=== PATIENT | female | born 1955 | race Caucasian/White ===

== ENCOUNTER → 2017-04-08 | Outpatient (CLI) | payer MEDICARE ==
--- NOTE | 2017-04-08 11:32 | RAD ---
Indication history of tobacco use. Shortness of breath. PA and lateral views of the chest were obtained. No prior imaging of the chest is available. There is some mild diffuse interstitial prominence which, given the history, may reflect fibrotic changes. There is a 12 mm soft tissue nodule in the left upper lobe. While this may reflect a noncalcified granuloma other etiologies including neoplastic disease are not excluded. Comparison with old films establishing stability advised. If old films are not available then a CT examination of the chest should be considered. An acute finding in the chest is not seen. Significant pleural fluid is not present. There is no pneumothorax. There is slight hyperexpansion which, again there is compatible with a, chronic process. IMPRESSION: Probable fibrotic changes. 12 mm pulmonary nodule in the left upper lobe. See above discussion. No acute finding seen. A preliminary copy of this report was faxed to Dr. Regulo Jacobo's office and received by Qian Colon RN by Rhina Ford on 04-08-17 at 11:03 am.
== END | disposition home or self-care (01) ==
LOC: DXRADRC 10:26
PROVIDERS: ATTEND General Practice
DX: R06.02 Shortness of breath (principal); R91.1 Solitary pulmonary nodule; Z72.0 Tobacco use
CPT/HCPCS: 71020

== ENCOUNTER → 2017-04-23 | Outpatient (CLI) | payer MEDICARE ==
--- NOTE | 2017-04-23 12:57 | RAD ---
Examination: CT chest without contrast History: History of tobacco use, weight loss Comparison: None available Technique: Axial CT images of the chest were performed without contrast. Coronal and sagittal reformats are performed PQRS Compliance Statement: One or more of the following individualized dose reduction techniques were utilized for this examination: 1. Automated exposure control 2. Adjustment of the mA and/or kV according to patient size 3. Use of iterative reconstruction technique Findings: The visualized thyroid gland grossly appears unremarkable. The central airways are patent. The ascending aorta measures 3.2 cm in transverse dimension and 3.2 cm in AP dimension. Coronary artery calcifications identified. The heart size grossly appears unremarkable. No evidence of pericardial effusion identified There is a 1.4 cm solid appearing nodule identified in the left upper lobe of the lung. In the left lingula, there is a solid 4 mm nodule identified. No evidence of pleural effusion or pneumothorax. The visualized noncontrasted liver, spleen grossly appears unremarkable. The visualized adrenal glands grossly appears unremarkable. There is a cystic structure identified in the left kidney measuring 1.7 x 1.5 cm could be a cyst or cystic lesion. Mild degenerative changes of thoracic spine. Impression: 1. A 1.4 cm nodule identified in the left upper lobe of the lung. Differential includes neoplasm, noncalcified granuloma. Recommend PET CT scan for further evaluation. 2. 4 mm nodule identified in the left lingula follow-up CT in 6-12 months is recommended per Fleischner Society guidelines. 3. Coronary artery calcifications.
--- NOTE | 2017-04-23 14:02 | RAD ---
Examination: DEXA scan History: History of postmenopausal, smoking Comparison: None available Findings: The bone mineral density in the lumbar spine is 1.412 g/sq cm with a T score of 1.9 and a Z score of 4.1. The bone mineral density in the right hip is 0.996 g/sq cm with a T score of -0.1 and the Z score 1.4. Impression: According to world congress diagnostic guidelines the bone mineral density of the lumbar spine and in the right hip is normal.
== END | disposition home or self-care (01) ==
LOC: DXRAD 11:15
PROVIDERS: ATTEND General Practice
DX: I25.10 Atherosclerotic heart disease of native coronary artery without angina pectoris (principal); N95.1 Menopausal and female climacteric states; E55.9 Vitamin D deficiency, unspecified; R63.4 Abnormal weight loss; R91.1 Solitary pulmonary nodule; R06.02 Shortness of breath; Z72.0 Tobacco use
CPT/HCPCS: 71250; 77080

== ENCOUNTER → 2017-10-14 | Outpatient (CLI) | payer MEDICARE ==
--- NOTE | 2017-10-14 10:56 | RAD ---
Indication: Follow-up nodules. Lifetime heavy smoker. Technique: Axial images and coronal and sagittal reformatted images are provided. Comparison is from April 23, 2017. There are no older comparisons available. One or more of the following individualized dose reduction techniques were utilized for this examination: 1. Automated exposure control 2. Adjustment of the mA and/or kV according to patient size 3. Use of iterative reconstruction technique Findings: Left upper lobe nodule has decreased in size. It measures 11 x 7 mm compared to 13 x 11 mm on my measurements on prior. Second nodule on the left on image 47 is stable at 3 mm. No new nodule is identified. There is minimal dependent atelectasis. There is minimal apical scarring. There is minimal emphysema with an upper lobe predominance. Central airways are patent. There is atheromatous disease in the thoracic aorta without aneurysm. Coronary artery calcifications are noted. There is cholelithiasis. 2 cm cystic lesion is noted in the left kidney, stable. There are minimal degenerative changes in the spine. Impression: 1. Interval decrease in size of the left upper lobe nodule. Please correlate with any interval treatment. 2. Additional nodule on the left is stable. 3. Per Fleischner Society, follow-up would be at 18-24 months from the initial April exam. If this patient has a known history of breast cancer or other malignancy, the nodules no longer would be considered incidental and a shorter term follow-up should be considered.
== END | disposition home or self-care (01) ==
LOC: CT 09:26
PROVIDERS: ATTEND General Practice
DX: J43.9 Emphysema, unspecified (principal); J98.11 Atelectasis; J98.4 Other disorders of lung; R91.1 Solitary pulmonary nodule; I25.10 Atherosclerotic heart disease of native coronary artery without angina pectoris; I70.0 Atherosclerosis of aorta; K80.20 Calculus of gallbladder without cholecystitis without obstruction; N28.89 Other specified disorders of kidney and ureter; M54.5 Low back pain; M47.894 Other spondylosis, thoracic region
CPT/HCPCS: 71250

== ENCOUNTER → 2018-02-24 | Outpatient (CLI) | payer MEDICARE ==
[2018-02-24 11:10] LABS: BACTERIA,URINE MOD /HPF (0-FEW); BILIRUBIN,URINE NEG (NEG); CLARITY,URINE HAZY; COLOR,URINE YELLOW; GLUCOSE,URINE NEG (NEG); NITRITE,URINE NEG (NEG); SQUAMOUS EPITHELIAL CELL,UR OCC /LPF; UROBILINOGEN,URINE 0.2 mg/dL (0.2 mg/dL)
== END | disposition home or self-care (01) ==
LOC: LAB 10:23
PROVIDERS: ATTEND General Practice
DX: R30.0 Dysuria (principal)
CPT/HCPCS: 81001; 87086

== ENCOUNTER 2019-02-07 09:46 | Emergency (ER) | payer MEDICARE ==
[2019-02-07 10:11] LABS: BASO # 0.1 x10^3/uL (0.0-0.2); BASO % 1 % (0-3); EOS % 0 % (0-3); HEMATOCRIT 39.5 % (36.0-47.0); HEMOGLOBIN 13.6 g/dL (12.0-15.5); LYMPH # 0.7 x10^3/uL (1.0-4.8); LYMPH % 5 % (24-48); MEAN CORPUSCULAR HEMOGLOBIN 32 pg (25-35); MEAN CORPUSCULAR HGB CONC 35 g/dL (31-37); MEAN CORPUSCULAR VOLUME 94 fL (79-100); MONO # 0.9 x10^3/uL (0.0-1.1); MONO % 7 % (0-9); NEUT # 11.5 x10^3uL (1.8-7.7); NEUT % 88 % (31-73); PLATELET COUNT 186 x10^3/uL (140-400); RED BLOOD COUNT 4.21 x10^6/uL (3.50-5.40); RED CELL DISTRIBUTION WIDTH 12.8 % (11.5-14.5); WHITE BLOOD COUNT 13.1 x10^3/uL (4.0-11.0)
--- NOTE | 2019-02-07 10:12 | PHYS DOC ---
Adult General Chief Complaint Chief Complaint: ABDOMINAL PAIN HPI HPI 63-year-old female presents with left lower quadrant abdominal pain. She states the pain started gradually 2 days ago and has been getting worse. This morning she had episodes of nausea and vomiting. She denies diarrhea. She describes the pain as a deep cramping that is moderate to severe. She took Excedrin at home without relief. She denies fever or chills. She has not had abdominal pain like this before. No history of diverticulitis. Review of Systems Review of Systems Constitutional: Denies fever or chills [] Eyes: Denies change in visual acuity, redness, or eye pain [] HENT: Denies nasal congestion or sore throat [] Respiratory: Denies cough or shortness of breath [] Cardiovascular: No additional information not addressed in HPI [] GI: Abdominal pain, nausea, vomiting. Denies bloody stools or diarrhea [] : Denies dysuria or hematuria [] Musculoskeletal: Denies back pain or joint pain [] Integument: Denies rash or skin lesions [] Neurologic: Denies headache, focal weakness or sensory changes [] Endocrine: Denies polyuria or polydipsia [] All other systems were reviewed and found to be within normal limits, except as documented in this note. Current Medications Current Medications Current Medications Medications (Trade) Dose Ordered [facility] Start Time Stop Time Status Last Admin Dose Admin Morphine Sulfate (Morphine 2mg Syringe) 2 mg 1X ONCE 02/07/19 10:15 02/07/19 10:16 UNV Ondansetron HCl (Zofran) 4 mg 1X ONCE 02/07/19 10:15 02/07/19 10:16 UNV Allergies Allergies Allergies Coded Allergies Type Severity Reaction Last Updated Verified codeine Allergy Unknown 02/07/19 Yes Physical Exam Physical Exam Constitutional: Well developed, well nourished, no acute distress, non-toxic appearance. [] HENT: Normocephalic, atraumatic, bilateral external ears normal, oropharynx moist, no oral exudates, nose normal. [] Eyes: PERRLA, EOMI, conjunctiva normal, no discharge. [] Neck: Normal range of motion, no tenderness, supple, no stridor. [] Cardiovascular:Heart rate regular rhythm, no murmur [] Lungs & Thorax: Bilateral breath sounds clear to auscultation [] Abdomen: Left lower quadrant tenderness, soft, no guarding or rebound[] Skin: Warm, dry, no erythema, no rash. [] Back: No tenderness, no CVA tenderness. [] Extremities: No tenderness, no cyanosis, no clubbing, ROM intact, no edema. [] Neurologic: Alert and oriented X 3, normal motor function, normal sensory function, no focal deficits noted. [] Psychologic: Affect normal, judgement normal, mood normal. [] EKG EKG [] Radiology/Procedures Radiology/Procedures [] Impressions: CT Abdomen; CT Pelvis without contrast INDICATION: LLQ and mid section abdominal pain with vomiting x 2 days COMPARISON: Chest CT dated 10/14/2017, PET/CT dated 05/16/2017. TECHNIQUE: Multiple contiguous axial images were obtained throughout the abdomen and pelvis without the use of IV contrast. Axial images were reformatted into coronal and sagittal planes. IV or oral contrast was not utilized due to allergy to iodine FINDINGS: Abdomen findings: Evaluation of solid abdominal viscera is limited without the use of IV contrast. Unchanged subcentimeter hypoattenuating lesion in the right lobe of the liver (image 34, series 2) which is too small to characterize but statistically likely represents a simple hepatic cyst. No significant change in biliary ductal dilation measuring up to 1.6 cm which may be secondary to reservoir effect given the cholecystectomy. 2 left renal cysts. The kidneys are otherwise unremarkable. There is no significant mesenteric or retroperitoneal adenopathy identified, though evaluation is limited without intravenous contrast. There is no evidence of free intraperitoneal fluid or pneumoperitoneum. Portions of the large bowel are underdistended which limits evaluation for wall thickening. Mild colonic stool. Visualized portions of the bowel are otherwise grossly unremarkable. The appendix is not identified with certainty but there are no inflammatory changes in its expected position. Moderate to severe atherosclerosis of the abdominal aorta and its branches. Small fat-containing umbilical hernia. Pelvis findings: The urinary bladder is underdistended limiting evaluation. There is no significant pelvic ascites. No significant iliac or inguinal adenopathy is identified. No acute osseous abnormality. Heterogeneity within the osseous structures with mixed areas of lucency and sclerosis, although this is not significantly changed from prior PET/CT. For instance, in the right sacral ala there is an approximately 1.4 x 1.0 cm rounded lucency, unchanged from PET/CT. There are for nonrib-bearing lumbar-type vertebral bodies. The most superior of the lumbar-type vertebral bodies will be considered L1. Advanced L2-L3 degenerative changes. IMPRESSION: 1. No acute intra-abdominal or intrapelvic process identified. 2. No significant change in biliary ductal dilation measuring up to 1.6 cm which may be secondary to reservoir effect given the cholecystectomy. Correlate with patient's lab values. 3. Heterogeneity within the osseous structures with mixed areas of lucency and sclerosis, although this is not significantly changed from prior PET/CT. Findings are nonspecific but can be seen with such etiologies as Paget disease, multiple myeloma, and metastatic disease. Electronically signed by: Rdorigo Gillespie MD (02/07/2019 11:35 AM) [facility] DICTATED AND SIGNED BY: RODRIGO GILLESPIE MD DATE: 02/07/19 1135 CC: ARABELLA ROBBINS DO; MAKSIM ASH DO ~ Course & Med Decision Making Course & Med Decision Making Pertinent Labs and Imaging studies reviewed. (See chart for details) She was given 1 L normal saline, 8 mg of Zofran IV, 10 mg of Compazine IV to control her vomiting. She has not vomited since. She has been able to keep down some fluids. Gave her 4 mg of morphine for her pain. She still has some abdominal discomfort. Her CT scan is negative for acute findings. Her urinalysis is significant for yeast infection. I will give her Diflucan in the ED. The patient feels like she can go home. I will discharge her with a prescription for Zofran 8 mg ODT. Patient will take her already prescribed tramadol for pain as needed. She is stable for discharge at this time. [] Dragon Disclaimer Dragon Disclaimer This electronic medical record was generated, in whole or in part, using a voice recognition dictation system. Departure Departure: Impression: Primary Impression: Abdominal pain Additional Impression: Vomiting Disposition: HOME, SELF-CARE Condition: STABLE Referrals: ARABELLA ROBBINS DO (PCP) Patient Instructions: Abdominal Pain, [id number], Nausea and Vomiting, Easy- to-Read Problem Qualifiers Primary Impression: Abdominal pain Abdominal location: lower abdomen, unspecified Qualified Codes: R10.30 - Lower abdominal pain, unspecified Additional Impression: Vomiting Vomiting type: unspecified Vomiting Intractability: non-intractable Nausea presence: with nausea Qualified Codes: R11.2 - Nausea with vomiting, unspecified MAKSIM ASH DO Feb 07, 2019 10:12
[2019-02-07 10:26] LABS: ALBUMIN 3.2 g/dL (3.4-5.0); ALBUMIN/GLOBULIN RATIO 0.7 (1.0-1.7); CALCIUM 9.3 mg/dL (8.5-10.1); CREATININE 1.2 mg/dL (0.6-1.0); GFR 45.1; POTASSIUM 3.5 mmol/L (3.5-5.1); TOTAL BILIRUBIN 0.3 mg/dL (0.2-1.0); TOTAL PROTEIN 7.6 g/dL (6.4-8.2)
[2019-02-07] MEDS ORDERED: IOHEXOL 300 MG/ML 75 ML VIAL. IV ONE (10:30)
[2019-02-07] MEDS ORDERED: MORPHINE SULFATE 4 MG/ML DISP.SYRIN. IV ONE (10:40)
[2019-02-07] MEDS ORDERED: ONDANSETRON PF 4 MG/2 ML VIAL. IV ONE ×2 (10:40→11:25)
[2019-02-07] MEDS ORDERED: PROCHLORPERAZINE 10 MG/2 ML VIAL. IV ONE (11:25)
[2019-02-07 11:38] LABS: CLARITY,URINE CLOUDY; COLOR,URINE YELLOW
--- NOTE | 2019-02-07 11:38 | RAD ---
CT Abdomen; CT Pelvis without contrast INDICATION: LLQ and mid section abdominal pain with vomiting x 2 days COMPARISON: Chest CT dated 10/14/2017, PET/CT dated 05/16/2017. TECHNIQUE: Multiple contiguous axial images were obtained throughout the abdomen and pelvis without the use of IV contrast. Axial images were reformatted into coronal and sagittal planes. IV or oral contrast was not utilized due to allergy to iodine FINDINGS: Abdomen findings: Evaluation of solid abdominal viscera is limited without the use of IV contrast. Unchanged subcentimeter hypoattenuating lesion in the right lobe of the liver (image 34, series 2) which is too small to characterize but statistically likely represents a simple hepatic cyst. No significant change in biliary ductal dilation measuring up to 1.6 cm which may be secondary to reservoir effect given the cholecystectomy. 2 left renal cysts. The kidneys are otherwise unremarkable. There is no significant mesenteric or retroperitoneal adenopathy identified, though evaluation is limited without intravenous contrast. There is no evidence of free intraperitoneal fluid or pneumoperitoneum. Portions of the large bowel are underdistended which limits evaluation for wall thickening. Mild colonic stool. Visualized portions of the bowel are otherwise grossly unremarkable. The appendix is not identified with certainty but there are no inflammatory changes in its expected position. Moderate to severe atherosclerosis of the abdominal aorta and its branches. Small fat-containing umbilical hernia. Pelvis findings: The urinary bladder is underdistended limiting evaluation. There is no significant pelvic ascites. No significant iliac or inguinal adenopathy is identified. No acute osseous abnormality. Heterogeneity within the osseous structures with mixed areas of lucency and sclerosis, although this is not significantly changed from prior PET/CT. For instance, in the right sacral ala there is an approximately 1.4 x 1.0 cm rounded lucency, unchanged from PET/CT. There are for nonrib-bearing lumbar-type vertebral bodies. The most superior of the lumbar-type vertebral bodies will be considered L1. Advanced L2-L3 degenerative changes. IMPRESSION: 1. No acute intra-abdominal or intrapelvic process identified. 2. No significant change in biliary ductal dilation measuring up to 1.6 cm which may be secondary to reservoir effect given the cholecystectomy. Correlate with patient's lab values. 3. Heterogeneity within the osseous structures with mixed areas of lucency and sclerosis, although this is not significantly changed from prior PET/CT. Findings are nonspecific but can be seen with such etiologies as Paget disease, multiple myeloma, and metastatic disease. Electronically signed by: Rodrigo Donahue MD (02/07/2019 11:35 AM) [facility]
[2019-02-07 11:39] LABS: BILIRUBIN,URINE NEG (NEG); GLUCOSE,URINE NEG (NEG); NITRITE,URINE NEG (NEG); RBC,URINE >40 /HPF (0-2); UROBILINOGEN,URINE 0.2 mg/dL (0.2 mg/dL); WBC,URINE 20-40 /HPF (0-4)
[2019-02-07 11:41] LABS: BACTERIA,URINE MOD /HPF (0-FEW); SQUAMOUS EPITHELIAL CELL,UR MANY /LPF; YEAST,URINE PRESENT /HPF
[2019-02-07] MEDS ORDERED: HYDROcodone/APAP 5/325MG 1 TAB TABLET PO ONE (12:30)
[2019-02-07] MEDS ORDERED: FLUCONAZOLE 100 MG TABLET. PO ONE (12:30)
[2019-02-07 13:06] LABS: INFLUENZA A PATIENT NEGATIVE (NEGATIVE); INFLUENZA B PATIENT NEGATIVE (NEGATIVE)
--- NOTE | 2019-02-07 13:32 | RAD ---
PA and lateral views of the chest. Comparison: Chest radiograph dated 04/08/2017, CT chest dated 10/14/2017, PET/CT dated 05/16/2017. Indication: Fever Findings: Normal lung volume. No focal consolidation. There is some heterogeneous airspace opacities in the left mid to upper lung zone in the region of previously demonstrated left lung nodule. Normal pulmonary vasculature. No pleural effusion. No pneumothorax. The cardiomediastinal silhouette is normal in appearance. The great vessels are normal. No acute osseous abnormality. Impression: 1. No focal consolidation. 2. Some heterogeneous airspace opacities are seen in the left mid to upper lung zone in the region of the previously demonstrated left lung nodule. Discrete nodularity is not seen on today's exam. Electronically signed by: Rodrigo Donahue MD (02/07/2019 1:29 PM) [facility]
[2019-02-07] MEDS ORDERED: ACETAMINOPHEN 500 MG TABLET PO ONE (14:20)
[2019-02-07] MEDS ORDERED: IV NORMAL SALINE 50ML 50 ML ONE (14:28)
[2019-02-07] MEDS ORDERED: cefTRIAXone SODIUM 1 GM VIAL ONE (14:28)
[2019-02-07] MEDS ORDERED: ONDA4TAB12 PO (15:12)
[2019-02-07 15:18] VITALS: BP 126/68
== END 2019-02-07 15:22 | disposition left against medical advice (07) ==
LOC: ER 09:46
DX: R10.32 Left lower quadrant pain (principal); R11.2 Nausea with vomiting, unspecified; Z88.5 Allergy status to narcotic agent
CPT/HCPCS: 36415; 71046; 74176; 80053; 81001; 85025; 87040; 87086; 87205; 87804; 96365; 96375; 96376; 99284; J0696; J0780; J2270; J2405; 87077; 87186

== ENCOUNTER → 2020-09-16 | Outpatient (CLI) | payer MEDICARE ==
[~2020-09-16] MED LIST: CITA40TA12 PO; ONDA4TAB12 PO; TRAM50TA PO
== END ==
LOC: LAB 10:26 → MERGE 10:26
PROVIDERS: ATTEND Nurse Anesthetist, Certified Registered
DX: Z01.818 Encounter for other preprocedural examination (principal); K62.5 Hemorrhage of anus and rectum; Z20.828 Contact with and (suspected) exposure to other viral communicable diseases
CPT/HCPCS: U0003

== ENCOUNTER → 2020-09-20 | Day surgery (SDC) | payer MEDICARE ==
[~2020-09-20] MED LIST changes: +GLYCOPYRROLATE 1 MG/5 ML VIAL. ONE; +IPRATRPIUM/ALBUTEROL 0.5/2.5MG 3 ML NEBU. NEB PRN; +IV RINGERS SOLUTION,LACTATED 1,000 ML IV SCH; +LIDOCAINE 2% PF 5 ML VIAL. ONE; +MIDAZOLAM HCL PF 2 MG/2 ML VIAL. IV ONE; +PROPOFOL 10,000 MCG/ML (20ML) VIAL IV ONE
[2020-09-20 08:41] VITALS: BP 117/73
== END | disposition home or self-care (01) ==
LOC: SURG 06:50 → MERGE 06:50
PROVIDERS: ATTEND Emergency Medicine
DX: K92.1 Melena (principal); K64.8 Other hemorrhoids; Q43.8 Other specified congenital malformations of intestine; Z91.041 Radiographic dye allergy status; Z88.5 Allergy status to narcotic agent; I25.10 Atherosclerotic heart disease of native coronary artery without angina pectoris; J43.9 Emphysema, unspecified; I70.0 Atherosclerosis of aorta; Z98.890 Other specified postprocedural states; Z79.899 Other long term (current) drug therapy
CPT/HCPCS: 45378; J2001; J2704; J3490; J7120